=== PATIENT | male | born 1955 | race Caucasian/White ===

== ENCOUNTER 2018-09-28 09:10 | Outpatient (RCR) | payer MEDICARE, OTHER ==
[2018-11-11] MEDS ORDERED: DIAZ5TAB3 PO (09:04)
[2018-11-11] MEDS ORDERED: HYDR-3820 PO (09:05)
[2018-11-11] MEDS ORDERED: APIX5TAB PO (09:06)
[2018-11-11] MEDS ORDERED: TADA5TAB2 PO (09:06)
[2018-11-11] MEDS ORDERED: FLEC50TA PO ×2 (10:47→12:57)
== END 2018-12-27 | disposition home or self-care (01) ==
LOC: CARD 09:10
PROVIDERS: ATTEND Internal Medicine Cardiovascular Disease
DX: I48.91 Unspecified atrial fibrillation (principal); R00.2 Palpitations; F41.9 Anxiety disorder, unspecified; E66.9 Obesity, unspecified
CPT/HCPCS: 93225; 93226; 93306

== ENCOUNTER → 2018-10-07 | Outpatient (CLI) | payer MEDICARE, MEDICAID ==
[~2018-10-07] MED LIST: CATHETER FLUSH 10 ML SYR IV PRN; REGADENOSON 0.4 MG/5 ML SYR (LEXISCAN) IV ONE
[2018-10-07 09:52] VITALS: BP 142/89
[2018-10-07 09:54] VITALS: BP 154/101
--- NOTE | 2018-10-07 15:47 | STRESS TEST ---
DATE OF SERVICE: 10/07/2018 LEXISCAN MYOVIEW STRESS TEST REPORT Baseline heart rate is 62. Baseline blood pressure 142/89. Baseline EKG is sinus rhythm with no ischemic changes. In summary, the patient was injected with 10.41 mCi of technetium-99 Myoview and the resting images were obtained. Then, the patient received 0.4 mg of Lexiscan, followed by 28.5 mCi of technetium-99 Myoview. Throughout the test, there were no EKG changes. The resting and stress images were reviewed and compared in the short axis, horizontal long axis, and vertical long axis views. Review of the images showed diaphragmatic attenuation with decreased uptake involving the mid to apical inferior wall, which is fixed. No significant ischemia was noted. Typical male pattern. SSS is 1, SDS 1, TID value 1.01. On the gated images, the left ventricle appeared to be normal size with mild hypokinesia at the inferolateral and anterolateral wall. Calculated ejection fraction 46%. CONCLUSION: 1. The patient tolerated Lexiscan well. 2. Diaphragmatic attenuation with typical male pattern with no significant ischemia or infarction on SPECT images. 3. Normal left ventricular size with mild hypokinesia at the inferolateral and anterolateral wall with calculated ejection fraction 46%. Job ID: [id number] DocumentID: [id number] Dictated Date: 10/07/2018 15:33:18 Railway Engineer Date: 10/07/2018 15:46:54 Dictated By: PHILIPP GARDNER MD
== END ==
LOC: CARD 08:24
PROVIDERS: ATTEND Internal Medicine Cardiovascular Disease
DX: I48.91 Unspecified atrial fibrillation (principal); R00.2 Palpitations; F41.9 Anxiety disorder, unspecified; E66.9 Obesity, unspecified
CPT/HCPCS: 78452; 93017

== ENCOUNTER 2018-11-11 07:44 | Day surgery (SDC) | payer MEDICARE, MEDICAID ==
[~2018-11-11] VITALS: Ht 167.6 cm; Wt 102.1 kg
[2018-11-11] VITALS (10 sets, daily range): BP systolic 127–154; BP diastolic 73–104
[2018-11-11] MEDS ORDERED: HEParin 1000 UNIT/ML (10ML VIAL) FOR BOLUS ONE (07:45)
[2018-11-11] MEDS ORDERED: NS IV 1000 ML 3,000 ML ONE (07:45)
[2018-11-11] MEDS ORDERED: LIDOCAINE 1% INJ 20 ML 20 ML VIAL ONE (07:45)
[2018-11-11 08:20] LABS: HEMOGLOBIN 14.5 G/DL (13.3-17.7); RED CELL DISTRIBUTION WIDTH 13.3 % (10.0-14.5)
[2018-11-11] MEDS ORDERED: NS IV 1000 ML 1,000 ML IV SCH ×2 (08:30→10:45)
[2018-11-11 08:32] LABS: PROTHROMBIN TIME PATIENT 13.3 SEC (12.2-14.7)
[2018-11-11 08:40] LABS: ALANINE AMINOTRANSFERASE 17 U/L (0-55); ALBUMIN 4.5 GM/DL (3.2-4.5); ALKALINE PHOSPHATASE 59 U/L (40-136); BILIRUBIN,TOTAL 0.5 MG/DL (0.1-1.0); BUN/CREATININE RATIO 16; CALCIUM 9.8 MG/DL (8.5-10.1); CARBON DIOXIDE 25 MMOL/L (21-32); CHLORIDE 107 MMOL/L (98-107); CHOLESTEROL 159 MG/DL (< 200); GFR ESTIMATED > 60; GLUCOSE 97 MG/DL (70-105); HDL CHOLESTEROL 39 MG/DL (40-60); POTASSIUM 4.3 MMOL/L (3.6-5.0); SODIUM 142 MMOL/L (135-145); TOTAL PROTEIN 7.7 GM/DL (6.4-8.2); TRIGLYCERIDES 92 MG/DL (<150); VLDL CHOLESTEROL 18 MG/DL (5-40)
[2018-11-11] MEDS ORDERED: FLU QUADRIvalent (5+ YOA) 2018-2019 (AFLURIA) 0.5 ML IM ONE (09:00)
[2018-11-11] MEDS ORDERED: DIAZ5TAB3 PO (09:04)
[2018-11-11] MEDS ORDERED: HYDR-3820 PO (09:05)
[2018-11-11] MEDS ORDERED: TADA5TAB2 PO (09:06)
[2018-11-11] MEDS ORDERED: APIX5TAB PO (09:06)
--- NOTE | 2018-11-11 09:07 | NUR ---
Patient did not bring a list or bottle in stated he had some in his car. He stated his medications and how he took them. Matched medications in chart. Fills at both [facility] and [facility].
--- OUTSIDE RECORDS SUMMARY | 2018-11-11 09:53 | XMS REPORT | Continuity of Care Document ---
Author Author [facility] Address Unknown Phone Unavailable Allergies Active Description Code Type Severity Reaction Onset Reported/Identified Relationship to Patient Clinical Status Yes NO KNOWN DRUG ALLERGIES UNKNOWN NO KNOWN DRUG ALLERG Yes No Allergy Information Available [id number] Drug Allergy Unknown N/A 2018 Medications Medication Packaging Start Date Stop Date Route Dosage Sig ASPIRIN 81MG CHEWABLE TAB 81 MG (BABY ASPIRIN) MG 09/17/2018 09/17/2018 ONCE&1324 Normal SALINE 0.9 % (NS 100cc) (plain bag) ml 09/17/2018 09/17/2018 ONCE&1324 Normal SALINE 0.9 % (NS 100cc) (plain bag) ml 09/17/2018 10/02/2018 CONTINUOUSEVERY 0 Hour Diltiazem 120mg,extended release cap (CARDIZEM) MG 09/17/2018 09/17/2018 ONCE&1441 APIXABAN TAB 5 MG (ELIQUIS) MG 11/201809/17/2018 ONCE&1441 LACTATED RINGERS 1000CC IV BAG INJ ml 10/12/2018 10/19/2018 CONTINUOUSEVERY 0 Hour Problems Date Dx Coded Attending Type Code Diagnosis Diagnosed By 10/27/2013 ELIJAH TOSCANO APRN S V70.0 EXAM - ROUTINE H&P 10/27/2013 ELIJAH TOSCANO APRN S V70.0 EXAM - ROUTINE H&P 10/27/2013 RICHARD MUNSON DDS V70.0 EXAM - ROUTINE H&P 10/27/2013 V70.0 EXAM - ROUTINE H&P 10/27/2013 LUCIA MAGUIRE APRN V70.0 EXAM - ROUTINE H&P 10/27/2013 ELIJAH TOSCANO APRN S V70.0 EXAM - ROUTINE H&P 10/27/2013 ELIJAH TOSCANO APRN S V70.0 EXAM - ROUTINE H&P 10/27/2013 EVERTON FLORESDAVIDELIJAH S V70.0 EXAM - ROUTINE H&P 10/27/2013 [employer] EXPORT AGENT, ELIJAH S V70.0 EXAM - ROUTINE H&P 10/27/2013 V70.0 EXAM - ROUTINE H&P 12/20/2013 [employer] AGENT, ELIJAH S 070.70 HEPATITIS C, UNSPEC 12/20/2013 RICHARD MUNSON DDS 070.70 HEPATITIS C, UNSPEC 12/20/2013 070.70 HEPATITIS C, UNSPEC 12/20/2013 [employer]ING [employer] EX[employer] AGENT LUCIA R 070.70 HEPATITIS C, UNSPEC 12/20/2013 EVERT[employer] AIR EXPORT AGENTDAVIDELIJAH S 070.70 HEPATITIS C, UNSPEC 12/20/2013 EVERT[employer] AIR EXPORT AGENTGORANA S 070.70 HEPATITIS C, UNSPEC 12/20/2013 EVERTON [employer] EXPORT AGENTGORANA S 070.70 HEPATITIS C, UNSPEC 12/20/2013 EVERT[employer] EX[employer] AGENTGORANA S 070.70 HEPATITIS C, UNSPEC 12/20/2013 070.70 HEPATITIS C, UNSPEC 05/27/2014 [employer] EX[employer] AGENT LUCIA R 719.47 PAIN IN JOINT INVOLVING ANKLE AND FOOT 05/27/2014 GORAN TOSCANO APRNA S 719.47 PAIN IN JOINT INVOLVING ANKLE AND FOOT 05/27/2014 EVERTON VALDOVINOSNDAVIDELIJAH S 719.47 PAIN IN JOINT INVOLVING ANKLE AND FOOT 05/27/2014 EVERT[employer] AIR EXPORT AGENTDAVIDELIJAH S 719.47 PAIN IN JOINT INVOLVING ANKLE AND FOOT 05/27/2014 DAVID TOSCANO APRNNDA S 719.47 PAIN IN JOINT INVOLVING ANKLE AND FOOT 05/27/2014 719.47 PAIN IN JOINT INVOLVING ANKLE AND FOOT 09/17/2018 Shan Taylor W 427.31 ATRIAL FIBRILLATION 09/17/2018 Shan Taylor I48.91 UNSPECIFIED ATRIAL FIBRILLATION 09/23/2018 ELIJAH TOSCANO HARVEST FIELD TICKETER Ot 070.70 UNSPECIFIED VIRAL HEPATITIS C WITHOUT HE 09/28/2018 ELIJAH TOSCANOP Ot 070.70 UNSPECIFIED VIRAL HEPATITIS C WITHOUT HE 10/07/2018 ELIJAH TOSCANOP Ot 070.70 UNSPECIFIED VIRAL HEPATITIS C WITHOUT HE 10/07/2018 PHILIPP GARDNER MD Ot E66.9 OBESITY, UNSPECIFIED 10/07/2018 PHILIPP GARDNER MD Ot F41.9 ANXIETY DISORDER, UNSPECIFIED 10/07/2018 PHILIPP GARDNER MD Ot I48.91 UNSPECIFIED ATRIAL FIBRILLATION 10/07/2018 PHILIPP GARDNER MD Ot R00.2 PALPITATIONS 10/09/2018 PHILIPP GARDNER MD Ot E66.9 OBESITY, UNSPECIFIED 10/09/2018 PHILIPP GARDNER MD Ot F41.9 ANXIETY DISORDER, UNSPECIFIED 10/09/2018 PHILIPP GARDNER MD Ot I48.91 UNSPECIFIED ATRIAL FIBRILLATION 10/09/2018 PHILIPP GARDNER MD Ot R00.2 PALPITATIONS 10/28/2018 PHILIPP GARDNER MD Ot E66.9 OBESITY, UNSPECIFIED 10/28/2018 PHILIPP GARDNER MD Ot F41.9 ANXIETY DISORDER, UNSPECIFIED 10/28/2018 PHILIPP GARDNER MD Ot I48.91 UNSPECIFIED ATRIAL FIBRILLATION 10/28/2018 PHILIPP GARDNER MD Ot R00.2 PALPITATIONS 11/06/2018 PHILIPP GARDNER MD Ot E66.9 OBESITY, UNSPECIFIED 11/06/2018 PHILIPP GARDNER MD Ot F41.9 ANXIETY DISORDER, UNSPECIFIED 11/06/2018 PHILIPP GARDNER MD Ot I48.91 UNSPECIFIED ATRIAL FIBRILLATION 11/06/2018 PHILIPP GARDNER MD Ot R00.2 PALPITATIONS 11/06/2018 PHILIPP GARDNER MD Ot E66.9 OBESITY, UNSPECIFIED 11/06/2018 PHILIPP GARDNER MD Ot F41.9 ANXIETY DISORDER, UNSPECIFIED 11/06/2018 PHILIPP GARDNER MD Ot I48.91 UNSPECIFIED ATRIAL FIBRILLATION 11/06/2018 PHILIPP GARDNER MD Ot R00.2 PALPITATIONS Procedures Code Description [place] [address] ROUTINE VENIPUNCTURE 12/20/2013 27778 CBC 12/20/2013 07466 URINE DRUG SCREEN (IN-HOUSE ) 12/20/2013 6109816 GFR CALC (RESULT ONLY) 12/20/2013 16699 CMP 12/20/2013 80207 HEP B SURFACE ANTIGEN (L) 12/20/2013 47007 HEP A ANTIBODY, IGM (L) 12/20/2013 55119 HEP B SURFACE ANTIBODY 12/20/2013 70579 HIV ANTIBODIES (RML) 12/21/2013 09841 HEP C PCR QUANT W/MELONY 12/23/2013 29067 GENOTYPE DNA HEPATITIS C 12/30/2013 89759 US LIVER ULTRASOUND 01/17/2014 49984 XRAY ANKLE L, 2 VIEW 05/27/2014 21125 ROUTINE VENIPUNCTURE 06/24/2014 53273 CBC 06/24/2014 20264 CMP 06/24/2014 [id number] GFR CALC (RESULT ONLY) 06/24/2014 13682 HEP C PCR QUANT (SERIAL) 06/27/2014 41646 TOTAL IRON-BINDING CAPACITY (TIBC, UIBC, and % Saturation TIBC) 2013 00327 CMP 07/15/2014 35015 IRON SERUM 07/15/2014 67446 IRON BNDNG CAP 07/15/2014 [id number] GFR CALC (RESULT ONLY) 07/15/2014 56653 CBC 07/15/2014 07629 FERRITIN 07/15/2014 49912 ROUTINE VENIPUNCTURE 07/27/2014 74290 ROUTINE VENIPUNCTURE 08/26/2014 41127 CBC 08/26/2014 1174546 GFR CALC (RESULT ONLY) 08/26/2014 48867 CMP 08/26/2014 91993 PT/INR 08/26/2014 56312 HEP C PCR QUANT (SERIAL) 08/30/2014 Results Test Result Range CBC With Differential/Platelet - 09/19/16 15:26 WBC 6.5 x10E3/uL 3.4-10.8 RBC 5.21 x10E6/uL 4.14-5.80 Hemoglobin 15.8 g/dL 12.6-17.7 Hematocrit 46.4 % 37.5-51.0 MCV 89 fL 79-97 MCH 30.3 pg 26.6-33.0 MCHC 34.1 g/dL 31.5-35.7 RDW 13.0 % 12.3-15.4 Platelets 256 x10E3/uL 150-379 Neutrophils 43 % Lymphs 39 % Monocytes 14 % Eos 3 % Basos 1 % Neutrophils (Absolute) 2.8 x10E3/uL 1.4-7.0 Lymphs (Absolute) 2.6 x10E3/uL 0.7-3.1 Monocytes(Absolute) 0.9 x10E3/uL 0.1-0.9 Eos (Absolute) 0.2 x10E3/uL 0.0-0.4 Baso (Absolute) 0.0 x10E3/uL 0.0-0.2 Immature Granulocytes 0 % Immature Grans (Abs) 0.0 x10E3/uL 0.0-0.1 Comp. Metabolic Panel (14) - 09/19/16 15:26 Glucose, Serum 93 mg/dL 65-99 BUN 15 mg/dL 8-27 Creatinine, Serum 0.89 mg/dL 0.76-1.27 eGFR If NonAfricn Am 92 mL/min/1.73 >59 eGFR If Africn Am 106 mL/min/1.73 >59 BUN/Creatinine Ratio 17 10-22 Sodium, Serum 142 mmol/L 134-144 Potassium, Serum 4.5 mmol/L 3.5-5.2 Chloride, Serum 100 mmol/L 96-106 Carbon Dioxide, Total 24 mmol/L 18-29 Calcium, Serum 9.8 mg/dL 8.6-10.2 Protein, Total, Serum 7.5 g/dL 6.0-8.5 Albumin, Serum 4.6 g/dL 3.6-4.8 Globulin, Total 2.9 g/dL 1.5-4.5 A/G Ratio 1.6 1.1-2.5 Bilirubin, Total 0.3 mg/dL 0.0-1.2 Alkaline Phosphatase, S 69 IU/L 39-117 AST (SGOT) 19 IU/L 0-40 ALT (SGPT) 22 IU/L 0-44 HCV RT-PCR, Quant (Non-Graph) - 09/19/16 15:26 Hepatitis C Quantitation HCV Not Detected IU/mL Test Information: Comment CBC With Differential/Platelet - 12/20/16 12:03 WBC 5.7 x10E3/uL 3.4-10.8 RBC 4.94 x10E6/uL 4.14-5.80 Hemoglobin 15.1 g/dL 12.6-17.7 Hematocrit 44.2 % 37.5-51.0 MCV 90 fL 79-97 MCH 30.6 pg 26.6-33.0 MCHC 34.2 g/dL 31.5-35.7 RDW 13.6 % 12.3-15.4 Platelets 244 x10E3/uL 150-379 Neutrophils 45 % Lymphs 42 % Monocytes 11 % Eos 2 % Basos 0 % Neutrophils (Absolute) 2.5 x10E3/uL 1.4-7.0 Lymphs (Absolute) 2.4 x10E3/uL 0.7-3.1 Monocytes(Absolute) 0.6 x10E3/uL 0.1-0.9 Eos (Absolute) 0.1 x10E3/uL 0.0-0.4 Baso (Absolute) 0.0 x10E3/uL 0.0-0.2 Immature Granulocytes 0 % Immature Grans (Abs) 0.0 x10E3/uL 0.0-0.1 Comp. Metabolic Panel (14) - 12/20/16 12:03 Glucose, Serum 91 mg/dL 65-99 BUN 13 mg/dL 8-27 Creatinine, Serum 0.85 mg/dL 0.76-1.27 eGFR If NonAfricn Am 93 mL/min/1.73 >59 eGFR If Africn Am 107 mL/min/1.73 >59 BUN/Creatinine Ratio 15 10-24 Sodium, Serum 139 mmol/L 134-144 Potassium, Serum 4.4 mmol/L 3.5-5.2 Chloride, Serum 102 mmol/L 96-106 Carbon Dioxide, Total 25 mmol/L 18-29 Calcium, Serum 10.0 mg/dL 8.6-10.2 Protein, Total, Serum 7.7 g/dL 6.0-8.5 Albumin, Serum 4.9 g/dL 3.6-4.8 Globulin, Total 2.8 g/dL 1.5-4.5 A/G Ratio 1.8 1.2-2.2 Bilirubin, Total 0.5 mg/dL 0.0-1.2 Alkaline Phosphatase, S 77 IU/L 39-117 AST (SGOT) 23 IU/L 0-40 ALT (SGPT) 23 IU/L 0-44 HCV RT-PCR, Quant (Non-Graph) - 12/20/16 12:03 Hepatitis C Quantitation HCV Not Detected IU/mL Test Information: Comment Thyroid Stimulating Hormone - 12/23/16 08:47 TSH 2.48 mIU/mL 0.32-5.00 HCV RNA, QUANTITATIVE REAL TIME PCR - 02/06/18 12:48 HCV RNA, QUANTITATIVE REAL TIME PCR <15 NOT DETECTED IU/mL NOT DETECTED HCV RNA, QUANTITATIVE REAL TIME PCR <1.18 NOT DETECTED Log IU/mL NOT DETECTED COMMENT NRG Comprehensive Metabolic Panel - 09/17/18 09:43 Albumin 5.1 g/dL 3.6-5.1 ALP 73 U/L 35-130 ALT 22 U/L 6-45 Anion Gap 14 6-14 AST 21 U/L 2-40 BUN 12 mg/dL 5-25 Calcium 9.9 mg/dL 8.3-10.4 Chloride 103 mmol/L 95-114 CO2 28 mEq/L 22-33 Creat 0.85 mg/dL 0.50-1.50 eGFR 91 mL/min/1.73m2 >59 Globulin 3.2 g/dL 2.3-3.5 Glucose 117 mg/dL 70-110 Osmo 292 280-295 Potassium 4.4 mmol/L 3.5-5.3 Sodium 141 mmol/L 134-148 TBil 0.7 mg/dL 0.2-1.2 TP 8.3 g/dL 6.0-8.3 Protime - 09/17/18 13:25 INR 1.1 1.0-4.0 Protime 13.0 Sec 9.9-12.8 Surgical Pathology - 10/12/18 09:57 Surg Path Sent to [facility] Pathology Automated blood complete blood count (hemogram) panel - 11/11/18 08:12 Blood leukocytes automated count (number/volume) 5.0 10*3/uL 4.3-11.0 Blood erythrocytes automated count (number/volume) 4.88 10*6/uL 4.35-5.85 Venous blood hemoglobin measurement (mass/volume) 14.5 g/dL 13.3-17.7 Blood hematocrit (volume fraction) 44 % 40-54 Automated erythrocyte mean corpuscular volume 90 [foz_us] 80-99 Automated erythrocyte mean corpuscular hemoglobin (mass per erythrocyte) 30 pg 25-34 Automated erythrocyte mean corpuscular hemoglobin concentration measurement ( mass/volume) 33 g/dL 32-36 Automated erythrocyte distribution width ratio 13.3 % 10.0-14.5 Automated blood platelet count (count/volume) 195 10*3/uL 130-400 Automated blood platelet mean volume measurement 10.0 [foz_us] 7.4-10.4 Comprehensive metabolic panel - 11/11/18 08:12 Serum or plasma sodium measurement (moles/volume) 142 mmol/L 135-145 Serum or plasma potassium measurement (moles/volume) 4.3 mmol/L 3.6-5.0 Serum or plasma chloride measurement (moles/volume) 107 mmol/L 98-107 Carbon dioxide 25 mmol/L 21-32 Serum or plasma anion gap determination (moles/volume) 10 mmol/L 5-14 Serum or plasma urea nitrogen measurement (mass/volume) 13 mg/dL 7-18 Serum or plasma creatinine measurement (mass/volume) 0.80 mg/dL 0.60-1.30 Serum or plasma urea nitrogen/creatinine mass ratio 16 NRG Serum or plasma creatinine measurement with calculation of estimated glomerular filtration rate > NRG Serum or plasma glucose measurement (mass/volume) 97 mg/dL 70-105 Serum or plasma calcium measurement (mass/volume) 9.8 mg/dL 8.5-10.1 Serum or plasma total bilirubin measurement (mass/volume) 0.5 mg/dL 0.1-1.0 Serum or plasma alkaline phosphatase measurement (enzymatic activity/volume) 59 U/L 40-136 Serum or plasma aspartate aminotransferase measurement (enzymatic activity/ volume) 19 U/L 5-34 Serum or plasma alanine aminotransferase measurement (enzymatic activity/volume ) 17 U/L 0-55 Serum or plasma protein measurement (mass/volume) 7.7 g/dL 6.4-8.2 Serum or plasma albumin measurement (mass/volume) 4.5 g/dL 3.2-4.5 CALCIUM CORRECTED 9.4 mg/dL 8.5-10.1 Lipid 1996 panel - 11/11/18 08:12 Serum or plasma triglyceride measurement (mass/volume) 92 mg/dL <150 Serum or plasma cholesterol measurement (mass/volume) 159 mg/dL < 200 Serum or plasma cholesterol in HDL measurement (mass/volume) 39 mg/ dL 40-60 Cholesterol in LDL [mass/volume] in serum or plasma by direct assay 111 mg/dL 1-129 Serum or plasma cholesterol in VLDL measurement (mass/volume) 18 mg/ dL 5-40 PT panel in platelet poor plasma by coagulation assay - 11/11/18 08:12 Prothrombin time (PT) in platelet poor plasma by coagulation assay 13.3 s 12.2-14.7 INR in platelet poor plasma or blood by coagulation assay 1.0 0.8-1.4 Activated partial thromboplastin time (aPTT) in platelet poor plasma bycoagulation assay - 11/11/18 08:12 Activated partial thromboplastin time (aPTT) in platelet poor plasma bycoagulation assay 30 s 24-35 Encounters ACCT No. Visit Date/Time Discharge Status Pt. Type Provider Facility Loc./Unit Complaint [id number] 08/26/2014 14:06:00 08/26/2014 23:59:59 CLS Outpatient [id number] 07/27/2014 00:00:00 07/27/2014 23:59:59 CLS Outpatient ELIJAH TOSCANO APRN [id number] 07/15/2014 10:32:00 07/15/2014 23:59:59 CLS Outpatient ELIJAH TOSCANO APRN [id number] 06/24/2014 12:47:00 06/24/2014 23:59:59 CLS Outpatient ELIJAH TOSCANO APRN [id number] 06/14/2014 10:23:00 06/14/2014 23:59:59 CLS Outpatient ELIJAH TOSCANO APRN S [id number] 05/27/2014 10:47:00 05/27/2014 23:59:59 CLS Outpatient LUCIA MAGUIRE APRN [id number] 04/15/2014 07:54:00 04/15/2014 23:59:59 CLS Outpatient [id number] 01/17/2014 00:00:00 01/17/2014 23:59:59 CLS Outpatient RICHARD MUNSON DDS [id number] 12/20/2013 10:18:00 12/20/2013 23:59:59 CLS Outpatient ELIJAH TOSCANO APRN [id number] 10/27/2013 09:59:00 10/27/2013 23:59:59 CLS Outpatient ELIJAH TOSCANO APRN [id number] 12/21/2016 13:05:00 Document Registration [id number] 10/12/2018 07:46:00 10/12/2018 10:50:00 DIS Outpatient Oh Núñez [id number] 09/21/2018 00:00:00 09/21/2018 07:00:00 DIS Outpatient Oh Núñez [id number] 09/17/2018 09:09:00 09/17/2018 23:59:00 DIS Outpatient Oh Núñez [id number] 09/17/2018 13:16:00 09/17/2018 15:30:00 [id number]/2016 08:44:00 12/23/2016 23:59:00 DIS Outpatient Mauricio Rust [id number] 09/17/2018 13:26:57 Document Registration [id number] 11/04/2018 10:00:00 11/04/2018 10:00:00 CAN Preadmit PHILIPP GARDNER MD Via [facility] CATH ABN STRESS TEST, AFIB, DYSPNEA, FAM HX OF CAD [id number] 10/07/2018 08:24:00 10/07/2018 23:59:59 CLS Outpatient PHILIPP GARDNER MD [facility] CARD AF,PALPITATIONS [id number] 09/28/2018 09:10:00 09/28/2018 23:59:59 CLS Outpatient PHILIPP GARDNER MD [facility] CARD AF,PALPITATIONS [id number] 09/23/2018 09:15:00 09/23/2018 23:59:59 CLS Preadmit PHILIPP GARDNER MD [facility] CARD AF,PALPITATIONS [id number] 02/14/2014 08:32:00 02/14/2014 23:59:59 CLS Outpatient ELIJAH TOSCANO [facility] RAD HEP C [id number] 11/21/2018 21:00:00 PEN Preadmit PHILIPP GARDNER MD [facility] SLEEP DAHIANA G47.33 [id number] 11/11/2018 10:00:00 PEN Preadmit PHILIPP GARDNER MD Via [facility] ABN STRESS TEST,DYSPNEA [id number] 09/02/2018 12:00:00 09/02/2018 23:59:59 CLS Outpatient [facility] [id number] 02/06/2018 12:20:00 Document Registration [id number] 09/24/2016 05:05:00 Document Registration [id number] 12/22/2016 13:05:00 Document Registration
[2018-11-11] MEDS ORDERED: fentaNYL INJECTION 100 MCG/2 ML AMP ONE (10:01)
[2018-11-11] MEDS ORDERED: MIDAZOLAM 5 MG/5 ML (VERSED) VIAL ONE (10:01)
--- NOTE | 2018-11-11 10:08 | Cardiac Procedure Note-CS/ASA ---
Pre-Procedure Note Pre-Op Procedure Note H&P Reviewed The H&P was reviewed, patient examined and no changes noted. Date H&P Reviewed: Nov 11, 2018 Time H&P Reviewed: 10:08 Conscious Sedation Pre-Proced Time 10:08 ASA Score 3 For ASA 3 and 4: Consider anesthesia and medical clearance. Also, for patients with a history of failed moderate sedation consider anesthesia. Airway Lungs Heart ASA score ASA 1: a normal healthy patient ASA 2: a patient with a mild systemic disease (mid diabetes, controlled hypertension, obesity x ASA 3: a patient with a severe systemic disease that limits activity (angina , COPD, prior Myocardial infarction) ASA 4: a patient with an incapacitating disease that is a constant threat to life (CHF, renal failure) ASA 5: a moribund patient not expected to survive 24 hrs. (ruptured aneurysm) ASA 6: a declared brain- patient whose organs are being harvested. For emergent operations, add the letter E after the classification Mallampati Classification Grade 3 Sedation Plan Analgesia, Amnesia, Plan communicated to team members, Discussed options with patient/fam, Discussed risks with patient/fam The patient is an appropriate candidate to undergo the planned procedure, sedation, and anesthesia. The patient immediately re-assessed prior to indication. PHILIPP GARDNER MD Nov 11, 2018 10:08
[2018-11-11] MEDS ORDERED: PATIENT MAY USE OWN MEDS, ALL PO SCH (10:45)
[2018-11-11] MEDS ORDERED: FLEC50TA PO ×2 (10:47→12:57)
--- NOTE | 2018-11-11 10:48 | Discharge Inst-Post CATH ---
Discharge Inst-CATH/EP Post Cardiac Cath/EP D/C Inst Follow Up/Plan Appointment with Dr. Vallejo's office in 2-4 weeks CARDIAC CATH DISCHARGE INSTRUCTIONS *Hold Metformin for 48 hours post heart cath. ACTIVITY * Go Home directly and rest. * Limit activity of the leg (or wrist if it was used) for 7 days including aerobics, swimming, jogging, bicycling, etc. * Restrict stair-climbing for 7 days if possible, if not, climb up with your non -cath leg, then bring together on the same step. * Avoid lifting, pushing, pulling or excessive movement of the affected extremity for 7 days. * Customary sexual activity may be resumed after 2 days-use caution not to use a position that strains or causes pain to the affected extremity. * No driving for 24 hours. * NO SMOKING. * Avoid straining for bowel movements for 7 days. * Gentle walking on level ground is allowed. * Returning to work will depend on the type of procedure and the results. Your doctor will discuss this with you. CALL YOUR DOCTOR FOR ANY OF THE FOLLOWING: *If bleeding from the puncture site occurs- Apply gentle pressure to site with clean cloth and call your doctor or EMS. * If a knot or lump forms under the skin, increases in size, or causes pain. * If bruising appears to be worsening or moving further down your leg instead of disappearing. * Temperature above 101 F. CARE OF YOUR GROIN INCISION; * Bruising or purple discoloration of the skin near the puncture site is common. * You may shower only, no bathtub bathing for 5 days. Be careful to avoid slipping as your leg may feel stiff. * If a closure device was used on your femoral artery, please see the attached guide regarding care of the device and your leg. * Leave the dressing on, until removed by office staff. CARE OF YOUR WRIST INCISION; * Bruising or purple discoloration of the skin near the puncture site is common. * You may shower. * DO NOT submerge wrist. * Leave dressing on, until removed by office staff.. PHILIPP VALLEJO MD Nov 11, 2018 10:48
--- NOTE | 2018-11-11 10:51 | Cardiac Cath Report ---
Cardiac Cath Report Physician (s)/Yard Brakeman (s) Physician PHILIPP GARDNER MD Pre-Procedure Diagnosis Pre-Procedure Diagnosis: coronary artery disease Post-Procedure Note Procedure Start Date: Nov 11, 2018 Name of Procedure: left heart catheterization Left ventriculogram Findings/Procedure Note PROCEDURE NOTE: 62 years old gentleman with history of paroxysmal atrial fibrillation, had borderline stress test with recurrent chest pain, I scheduled him for cardiac catheterization prior to initiate him on antiarrhythmic medication. After explaining the procedure to the patient, all pros and cons were explained , all questions were answered. The patient signed the consent and then he was placed on the cardiac catheterization laboratory. Groin was prepped SL fashion local anesthesia was used. Sheath placed in the right femoral artery. [place] right and left catheter were used to access the coronary system. Pigtail was used to access the left ventricular cavity. Left ventriculogram was done At the end of the procedure the sheath was removed. Closure device was used FINDINGS: Hemodynamics LV 125/16, end-diastolic pressure of 16 Aorta 150/68 mean of 96 ANATOMY: Left Main is free of obstructive disease Left Anterior Descending is slightly tortuous with about 40 percent stenosis in the midportion nonobstructive disease Left Circumflex has mild disease nonobstructive disease Right Coronory Artery has mild disease nonobstructive disease LV Gram is normal in size with normal contractility estimated ejection fraction 60 percent CONCLUSION: 1. Mild coronary artery disease nonobstructive disease 2. Normal left ventricular size and systolic function DISCUSSION AND RECOMMENDATION: I will start patient on flecainide 50 mg daily, continue on Eliquis. Continue to monitor and arrange for follow-up as an outpatient Anesthesia Type: Conscious Sedation Estimated blood loss (mL): 15 ml Contrast Amount: 45 ml Total Radiation Dose: 437 mGy Post-Procedure Diagnosis Post-operative diagnosis: Chest pain Coronary artery disease Chronic atrial fibrillation Hyperlipidemia PHILIPP GARDNER MD Nov 11, 2018 10:51
== END 2018-11-11 15:20 | disposition home or self-care (01) ==
LOC: CATH 07:44 → SDC 11:04 → CATH 15:20
PROVIDERS: ATTEND Internal Medicine Cardiovascular Disease
DX: R07.9 Chest pain, unspecified (principal); I25.10 Atherosclerotic heart disease of native coronary artery without angina pectoris; I48.2 Chronic atrial fibrillation; E78.5 Hyperlipidemia, unspecified; F41.9 Anxiety disorder, unspecified; R06.83 Snoring; Z79.01 Long term (current) use of anticoagulants
CPT/HCPCS: 36415; 36430; 80053; 80061; 85027; 85610; 85730; 87081; 93458

== ENCOUNTER 2018-11-21 20:43 | Outpatient (CLI) | payer MEDICARE, MEDICAID ==
[~2018-11-21 20:43] MED LIST changes: +APIX5TAB PO; -CATHETER FLUSH 10 ML SYR IV PRN; +DIAZ5TAB3 PO; +FLEC50TA PO; +HYDR-3820 PO; -REGADENOSON 0.4 MG/5 ML SYR (LEXISCAN) IV ONE; +TADA5TAB2 PO
== END 2018-11-22 07:10 | disposition home or self-care (01) ==
LOC: SLEEP 20:43
PROVIDERS: ATTEND Internal Medicine Cardiovascular Disease
DX: G47.33 Obstructive sleep apnea (adult) (pediatric) (principal)
CPT/HCPCS: 95811

== ENCOUNTER 2019-01-13 20:57 | Outpatient (CLI) | payer MEDICARE, MEDICAID | END 2019-01-14 05:53 | disposition home or self-care (01) | LOC: SLEEP 20:57 | PROVIDERS: ATTEND Otolaryngology Otolaryngology/Facial Plastic Surgery | DX: G47.33 Obstructive sleep apnea (adult) (pediatric) (principal); I48.91 Unspecified atrial fibrillation | CPT/HCPCS: 95811 ==

== ENCOUNTER 2020-06-26 08:30 | Outpatient (RCR) | payer MEDICARE, MEDICAID ==
[~2020-06-26 08:30] MED LIST changes: +ACHYD1T PO; -DIAZ5TAB3 PO; +DIAZ5TAB49 PO; -HYDR-3820 PO
== END 2020-07-27 14:56 | disposition home or self-care (01) ==
PROVIDERS: ATTEND Urology
DX: N40.1 Benign prostatic hyperplasia with lower urinary tract symptoms (principal); R35.0 Frequency of micturition

== ENCOUNTER 2021-07-11 11:14 | Day surgery (SDC) | payer MEDICARE, MEDICAID ==
[~2021-07-11] VITALS: Ht 198.1 cm; Wt 106.1 kg
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
--- OUTSIDE RECORDS SUMMARY | 2021-07-11 11:16 | XMS REPORT ---
Discharge Summary 2.1 Created on: 05/17/2021 CARLOS PETTIT : 1955 Sex: Male Author Author [facility] Organization Unknown Address [address] [id number] Care Team Providers Care Key Attendant Name Role Phone Watchlist MARGARITO VIDAL MD Attending IGNACIO REEVES MD [facility] Functional Status No Data Found Immunization No Data Found Mental Status No Data Found Results CBC W/ AUTO DIFF (RFLX MAN DIFF IF IND) - Collect Date/Time: 05/17/2021 06:30 3DSoC ID: [id number] [address] [facility] [address], [place], [place], [id number] LOINC: 37155-7 Test Value Unit Reference Range Code Code System WBC 9.9 TH/CMM L=4.5 H=10.8 73392-1 LOINC RBC 3.54 ML/CMM L=4.70 H=6.10 789-8 LOINC HGB 10.7 G/DL L=14.0 H=18.0 7 18-7 LOINC HCT 32.0 % L=42.0 H=52.0 4544 -3 LOINC MCV 90 FL L=81 H=99 MCH 30.2 PG L=27.0 H=33.0 MCHC 33.4 G/DL L=31.0 H=36.0 RDW SD 43 FL L=36 H=50 RDW CV 12.8 % L=0.0 H=14.8 MPV 10.6 FL L=9.3 H=12.5 PLT 172 TH/CMM L=130 H=440 777-3 LOINC NRBC# 0.00 TH/CMM L=0.00 H=0.00 NRBC% 0.0 /100WBC L=0.0 H=2.0 %NEUT 74.2 % %LYMP 11.7 % %MONO 13.1 % %EOS 0.3 % %BASO 0.3 % #NEUT 7.32 TH/CMM L=2.10 H=8.20 #LYMP 1.15 TH/CMM L=0.90 H=5.20 #MONO 1.29 TH/CMM L=0.16 H=1.00 #EOS 0.03 TH/CMM L=0.00 H=0.80 #BASO 0.03 TH/CMM L=0.00 H=0.20 MANUAL DIFF NOT IND KNEE 1V OR 2V - Completed: 05/16/2021 10 :17 LOINC: EXAMINATION:Right KNEE 1V OR 2VREASON FO R EXAM:Post-Op Evaluation Left/Right?: RIGHT COMPARISON:None.FINDINGS:Total knee arthroplasty changes with soft tissue swelling, subcutaneous emphysema, a joint effusion, and a surgical drain.Chronic proximal fibular and tibial fracture deformities with metallic foreign bodies.Atherosclerotic vascular calcifications with surgical clips.IMPRESSION:Right total knee arthroplasty changes.Reviewed and Electronically Signed by: Chela Frank Date/Time: 05/16/2021 11:19 AMJob ID#: [id number] Social History Type Status Start Date End Date Code Code System Smoking History Never smoker (Never Smoked ) 309380266 SNOMED-CT Vital Signs Vital Sign Value Unit Dexter Value Dexter Unit Date/Time Recent/Initial? Code Cod e System Systolic Blood Pressure 137 mm[Hg] 05/17/2021 07:08 Most Recent 8480-6 LOINC Diastolic Blood Pressure 72 mm[Hg] 05/17/2021 07:08 Most Recent 8462-4 LOINC Systolic Blood Pressure 109 mm[Hg] 05/16/2021 08:55 Initial 8480-6 LOINC Diastolic Blood Pressure 61 mm[Hg] 05/16/2021 08:55 Initial 8462-4 LOINC O2 Saturation 96 % 05/17/2021 07:08 Most Recent 00474-3 LOINC O2 Saturation 91 % 05/16/2021 08:54 Initial 68723-2 LOINC Pulse 65.0 /min 0 05/17/2021 07:08 Most Recent 8867-4 LOINC Pulse 69.0 /min 0 05/16/2021 08:54 Initial 8867-4 LOINC Respiration 21 /min 05/17/2021 07:08 Most Recent 9279-1 LOINC Respiration 10 /min 05/16/2021 08:54 Initial 9279-1 LOINC Temperature 37.3 Erna 99.1 05/17/2021 07:08 Most Recent 8310-5 LOINC Temperature 36.2 Erna 97.2 05/16/2021 09:50 Initial 8310-5 LOINC Assessment No Data Found Hospital Discharge Instructions Should you have any questions prior to discharge, please contact a member of your healthcare team. If you have left the hospital and have any questions, please contact your primary care physician. Reason For Referral Receiving Provider: IGNACIO REEVES [facility] [id number] Hospital Course You were admitted to [facility] on 05/16/2021 05:56 Medications Medication Start Date En d Date Route Frequency Dose Code Code System Medication Instructions LR 1000ML IV [PREDEF INED] 05/16/2021 Unknown INTRA VENOUS CONT IV 857763 RxNorm 110 ml/hr INTRAVENO US ~~~LR 1000 ML (7953) IV BAG 1000 ML RxNorm ONDANSETRON [ZOFRAN] INJ 4 MG/2 ML VIAL 05/16/2021 Unknown SLOW IV PUSH PRN 4 MG 0875100 RxNorm 4 MG SLO W IV PUSH NEEDED MILK OF MAGNESIA:12OZ 05/16/2021 Unknown BY MOUTH PRN 30 ML 436073 RxNorm 30 ML BY MOUTH NE EDED BISACODYL [DULCOLAX] SUPP : 10 MG 05/16/2021 Unknown RECTA LLY PRN 10 MG RxNorm 10 MG RE CTALLY NEEDED TEMAZEPAM [RESTORIL] CAPSULE : 7.5 MG 05/16/2021 Unknown BY [facility] PRN 1 unit(s) [id number] RxNorm 1 EA BY MOUTH NEEDED DIPHENHYDRAMINE (CARL ADRYL) CAP : 50 MG 05/16/2021 Unknown BY [facility] PRN 50 MG [id number] RxNorm 50 MG BY MOUTH NEEDED DIPHENHYDRAMINE (CARL ADRYL)INJ : 50MG/ML 05/16/2021 Unknown SLOW IV PUSH PRN 50 MG [id number] RxNorm 50 MG SL OW IV PUSH NEEDED VITAMIN (LH SUB FOR ALL MULTIVITAMINS) 05/16/2021 Unknown BY [facility] DAILY 1 TAB 535317 RxNorm 1 TAB BY MOUTH DAILY FERROUS SULFATE 325M G TABLET 05/16/2021 Unknown BY [facility] BID 325 MG [id number] RxNorm 325 MG BY MOUTH TWO TIMES A DAY DOCUSATE SODIUM 100 MG [COLACE] CAPSULE 05/16/2021 Unknown BY [facility] BID 100 MG [id number] RxNorm 100 MG B Y MOUTH TWO TIMES A DAY TAMSULOSIN [FLOMAX] CAP: 0.4MG 05/16/2021 Unknown BY [facility] DAILY 0.4 MG [id number] RxNorm 0.4 MG B Y MOUTH DAILY CELECOXIB [CELEBREX] CAPSULE : 200 MG 05/16/2021 Unknown BY [facility] BID 200 MG [id number] RxNorm 200 MG B Y MOUTH TWO TIMES A DAY OXYCODONE 5 MG IMMED IATE RELEASE TAB 05/16/2021 Unknown BY [facility] PRN Q 4 HRS 1 TAB 309207 1 RxNorm 1 TAB BY MOUTH EVERY 4 HOURS NEE DIAZEPAM [VALIUM] TA BLET : 5 MG 05/16/2021 Unknown BY [facility] TID 5 MG [id number] RxNorm 5 MG BY MOUTH THREE TIMES A DAY TRANEXAMIC ACID 2ND DOSE [PREDEFINED] 05/16/2021 05/16/2021 IV PIGGY X1 60 ml/hr 251416 RxNorm 60 ml/hr IV PIGGY ONE TIME ~~~TRANEXAMIC ACID INJ 1000MG/10ML VIAL 10 ML RxNorm CEFAZOLIN [ANCEF] IV 2GM (PREDEFINED) 05/16/2021 05/17/2021 INTRAVENOUS Q6H 100 ml/hr 9368325 RxNorm 100 ml/h r INTRAVENOUS ~~~NACL 0.9%: 50ML BAG 50 ML RxNorm ~~~CEFAZOLIN [ANCEF] INJ : 1 GM VIAL 2000 MG RxNorm ~~~REFRIGERATE 1 EA RxNorm ACETAMINOPHEN [OFIRM EV] 10MG/ML 100ML VL 05/16/2021 Unknown INTRAVENOUS Q6H 400 ml/hr 9012095 RxNorm 400 ml/h r INTRAVENOUS ~~~ACETAMINOPHEN [OFIRMEV] 10MG/ML 100ML VL 1000 MG RxNorm CeleBREX 200MG Oral Capsule 05/17/2021 Unknown ORAL TWO TIMES A DAY 200 MILLIGRAMS 638056 RxNorm 200 MILL IGRAMS ORAL TWO TIMES A DAY Eliquis 5MG Oral Tablet 05/17/2021 Unknown ORAL TWO TIMES A DAY 5 MILLIGRAMS 3527649 RxNorm 5 MILLIG ALANA ORAL TWO TIMES A DAY Valium 5MG Oral Tablet 05/17/2021 Unknown ORAL THREE TIMES A DAY 5 MILLIGRAMS 129026 RxNorm 5 MILLIG ALANA ORAL THREE TIMES A DAY Docusate 100MG Oral Capsule, Liquid Filled 05/17/2021 Unknown BY MOUTH TWO TIMES A DAY 100 MILLIGRAMS 3180971 RxNorm 100 MILLIGRAMS BY MOUTH TWO TIMES A DAY NEEDED FOR CONSTIPATION oxyCODONE HCl 5MG Or al Tablet 05/17/2021 Unknown BY [facility] NEEDED EVERY 4 HR 1 TABLET 7717400 RxNorm 1-2 TABLET BY MOUTH NEEDED EVERY 4-6 HR FOR PAIN Margarito - TKA PT 05/17/2021 Unknown TKA Protocol RxNorm PT per Dr. Margarito PASCUAL Protocol APIXABAN [ELIQUIS] T ABLET: 5 MG 05/17/2021 05/17/2021 BY MOUTH X1 5 MG [id number] RxNorm 5 MG BY MOUTH NOW APIXABAN [ELIQUIS] T ABLET: 5 MG 05/17/2021 Unknown BY [facility] BID 5 MG [id number] RxNorm 5 MG BY MOUTH TWO TIMES A DAY Procedures No Data Found Implants Implanted LETICIA Status Assigning Authority Procedure Date Polyethylene patella prosthesis [id number] Active FDA RIGHT TOTAL KNEE REPLACEMENT (41 MM) 05/16/2021 Tibial insert [id number] 113036630907 Active FDA RIGHT TOTAL K NEE REPLACEMENT (RIGHT 12 MM) 05/16/2021 Uncoated knee tibia prosthesis, metallic [id number] Active FDA RIGHT TOTAL KNEE REPLACEMENT (RIGHT SIZE F) 05/16/2021 Uncoated knee femur prosthesis, metallic [id number] Active FDA RIGHT TOTAL KNEE REPLACEMENT (RIGHT SIZE 8) 05/16/2021 Orthopaedic cement, non-antimicrobial [id number] Active FDA RIGHT TOTAL KNEE REPLACEMENT 021 Uncoated knee femur prosthesis, metallic [id number] Active FDA LEFT TKR 02/07/2021 Uncoated knee tibia prosthesis, metallic [id number] Active FDA LEFT TKR 02/07/2021 Tibial insert 5337033807666442646655 830596799705 Active FDA LEFT TKR 02/07/2021 Polyethylene patella prosthesis [id number] Active FDA LEFT TKR 02/07/2021 Orthopaedic cement, non-antimicrobial 3307313065836158079460584464010214 Active FDA LEFT TKR 02/07/2021 Orthopaedic cement, non-antimicrobial 2020207651389318886766925893660935 Active FDA LEFT TKR 02/07/2021 Problems Problem Start Date Resol yani Date Status Code Code System AFIB 01/29/2021 resolved 72928872 SNOMED-CT DIVERTICULITIS 021 resolved 318098863 SNOME D-CT URINARY INCONTINENCE 0 01/29/2021 resolved 290210298 SNOME D-CT BPH 01/29/2021 resolved 337309856 SNOMED-CT SLEEP APNEA 01/29/2021 resolved 46211630 SNOMED-CT CHRONIC BACK PAIN 01/13 resolved 557735180 SNOME D-CT Allergies Allergy Substance Reaction Severity Start Date Concern Status Code Code System No Known Drug Allergies Active 353411418 SNOMED- CT Plan of Treatment CBC W/ AUTO DIFF (RFLX MAN DIFF IF IND) 05/19/2021 LOINC: 93691-0 CBC W/ AUTO DIFF (RFLX MAN DIFF IF IND) 05/18/2021 LOINC: 28084-7 Encounters No Data Found Goals No Data Found Discharge Medications No Data Found Discharge Diagnosis No Data Found Health Concerns Section No Data Found
[2021-07-11] MEDS ORDERED: LIDOCAINE 1% INJ 20 ML 20 ML VIAL ONE (11:20)
[2021-07-11 11:27] VITALS: BP 151/83
[2021-07-11] MEDS ORDERED: LIDOCAINE 1% INJ 20 ML 20 ML VIAL INJ ONE (11:30)
--- NOTE | 2021-07-11 13:34 | Implantation of Loop Monitor ---
Implant of Loop Monitior IMPLANTATION OF LOOP MONITOR REPORT DATE OF PROCEDURE: 07/11/21 PREOP DIAGNOSIS: Paroxysmal atrial fibrillation POSTOP DIAGNOSIS: Paroxysmal atrial fibrillation PROCEDURE DETAILS: The patient is a 65 male with history of paroxysmal atrial fibrillation requiring long-term surveillance. Therefore implantable loop recorder was discussed and agreed with the patient. Informed consent was taken. All risks and complications were discussed at length. The patient was draped and prepped in the usual sterile fashion. Local anesthesia was lidocaine, which was given in the substernal area close to the 4th intercostal space. Loop monitor [employer]ish2tronic with serial number [id number] was implanted according to the protocol. Steri- Strips were placed at the end of the procedure. There were no complications and the patient tolerated the procedure well. ANESTHESIA: Local anesthesia with lidocaine. COMPLICATIONS: None CONTRAST/FLUOROSCOPY: None CONCLUSION: Successful implantation of loop monitor with no complication FINAL DIAGNOSIS: Paroxysmal atrial fibrillation Palpitation PHILIPP GARDNER MD Jul 11, 2021 13:34
== END 2021-07-11 12:24 | disposition home or self-care (01) ==
LOC: CATH 11:14
PROVIDERS: ATTEND Internal Medicine Cardiovascular Disease
DX: I48.0 Paroxysmal atrial fibrillation (principal); I10 Essential (primary) hypertension; I25.10 Atherosclerotic heart disease of native coronary artery without angina pectoris; G47.33 Obstructive sleep apnea (adult) (pediatric); E66.9 Obesity, unspecified; E78.2 Mixed hyperlipidemia; Z79.899 Other long term (current) drug therapy; Z79.01 Long term (current) use of anticoagulants; Z87.891 Personal history of nicotine dependence; Z99.89 Dependence on other enabling machines and devices; Z68.27 Body mass index [BMI] 27.0-27.9, adult
CPT/HCPCS: 33285; C1764

== ENCOUNTER → 2022-07-31 | Outpatient (CLI) | payer MEDICARE, MEDICAID | LOC: CARD 08:06 | PROVIDERS: ATTEND Internal Medicine Cardiovascular Disease | DX: I11.9 Hypertensive heart disease without heart failure (principal); I25.10 Atherosclerotic heart disease of native coronary artery without angina pectoris | CPT/HCPCS: 93306 ==

== ENCOUNTER 2022-10-02 05:52 | Outpatient (CLI) | payer MEDICARE, MEDICAID ==
[~2022-10-02] VITALS: Ht 167.6 cm; Wt 107.6 kg
[2022-10-03] MEDS ORDERED: MTP25TSR PO (09:04)
== END 2022-10-03 09:09 | disposition home or self-care (01) ==
LOC: PREOP 05:52
PROVIDERS: ATTEND Surgery
DX: Z01.818 Encounter for other preprocedural examination (principal)

== ENCOUNTER 2022-11-19 07:56 | Day surgery (SDC) | payer MEDICARE, MEDICAID ==
[~2022-11-19] VITALS: Ht 167.6 cm; Wt 107.6 kg
[~2022-11-19 07:56] MED LIST changes: +MTP25TSR PO
[2022-11-19] MEDS ORDERED: LACTATED RINGERS 1,000 ML IV STA (08:04)
[2022-11-19 08:15] VITALS: BP 154/89
[2022-11-19] MEDS ORDERED: PROPOFOL INJECTION 50 ML IV ONE (08:33)
--- NOTE | 2022-11-19 09:07 | Progress Note-Post Operative ---
Post-Operative Progess Note Surgeon (s)/Product Development Scientist (s) Surgeon MOLLY BLOOD DO Product Development Scientist: na Pre-Operative Diagnosis h/o polyps, screening colonoscopy Post-Operative Diagnosis Descending colon polyp Procedure & Operative Findings Date of Procedure 11/19/22 Procedure Performed/Findings colonoscopy with hot biopsy polypectomy x1 Anesthesia Type per admittance attendant Estimated Blood Loss Estimated blood loss (mL): none Specimens/Packing Specimens Removed descending colon polyp with hot biopsy x1 MOLLY BLOOD DO Nov 19, 2022 09:07
[2022-11-19 09:10] VITALS: BP 156/85
--- NOTE | 2022-11-19 09:10 | Discharge Inst-Simple/Standard ---
Discharge Inst-Standard Patient Instructions/Follow Up Plan of Care/Instructions/FU: 2 weeks Niya Activity as Tolerated: Yes Discharge Diet: Regular Diet MOLLY BLOOD DO Nov 19, 2022 09:10
[2022-11-19 09:30] VITALS: BP 140/81
[2022-11-19 09:45] VITALS: BP 140/81
--- NOTE | 2022-11-19 11:46 | Anesthesia-General Post-Op ---
MAC Patient Condition Mental Status/LOC: Same as Preop Cardiovascular: Satisfactory Nausea/Vomiting: Absent Respiratory: Satisfactory Pain: Controlled Complications: Absent Post Op Complications Complications None Follow Up Care/Instructions Patient Instructions None needed. Anesthesiology Discharge Order Discharge Order Patient is doing well, no complaints, stable vital signs, no apparent adverse anesthesia problems. No complications reported per nursing. TERI WALTON CRNA Nov 19, 2022 11:46
--- NOTE | 2022-11-19 13:15 | OPERATIVE REPORT ---
DATE OF SERVICE: 11/19/2022 PREOPERATIVE DIAGNOSIS: History of polyps. POSTOPERATIVE DIAGNOSIS: Descending colon polyp. PROCEDURE: Colonoscopy with hot biopsy polypectomy x1. SURGEON: Molly Núñez DO ANESTHESIA: Per EDUCATION COORDINATOR. ESTIMATED BLOOD LOSS: None. COMPLICATIONS: None. INDICATIONS: The patient is a 67-year-old male with history of colon polyps. He understands risks and benefits of procedure and wished to proceed. Consent was signed in chart. DESCRIPTION OF PROCEDURE: The patient was taken to endoscopy suite, placed in left lateral recumbent position. Timeout was performed. Digital rectal exam was performed. No palpable polyps, masses or ulcerations. Scope was inserted in the rectum, advanced all the way to the cecum with minimal difficulty. Prep was adequate. Scope was slowly retracted back. No polyps, masses or ulcerations in the cecum, ascending, transverse colon. In the descending colon, a small polyp was present, which hot biopsy polypectomy was performed. Scope was then continuously retracted back. No polyps, masses or ulcerations in the sigmoid colon. Once in the rectum, scope was retroflexed, noting no other pathology. Scope was returned to its normal position, slowly withdrawn until completely removed. The patient tolerated the procedure well, no complications, taken to recovery in stable condition. RECOMMENDATIONS: The patient will need repeat colonoscopy in 5 years due to history of polyps. Any issues before that, be seen at that time. The patient will follow up on pathology in 2 weeks. Job ID: [id number] DocumentID: [id number] Dictated Date: 11/19/2022 09:19:30 Dining Room Hostess Date: 11/19/2022 13:12:00 Dictated By: MOLLY NÚÑEZ DO
== END 2022-11-19 10:00 | disposition home or self-care (01) ==
LOC: ENDO 07:56
PROVIDERS: ATTEND Surgery
DX: Z12.11 Encounter for screening for malignant neoplasm of colon (principal); K63.5 Polyp of colon; G47.33 Obstructive sleep apnea (adult) (pediatric); E66.9 Obesity, unspecified; Z68.38 Body mass index [BMI] 38.0-38.9, adult; Z87.891 Personal history of nicotine dependence; Z28.310 Unvaccinated for COVID-19
CPT/HCPCS: 88305